=== PATIENT | female | born 1945 | race Caucasian/White ===

== ENCOUNTER → 2017-04-28 | Outpatient (CLI) | payer OTHER, BC ==
[~2017-04-28] VITALS: Ht 162.6 cm; Wt 72.6 kg
[~2017-04-28] MED LIST: ADVAIR HFA115 MCG/21 INH; ALENDRONATE SOD70 MG PO; ASPIR-LOW81 MG PO; B COMPLEX WITH1 EAC1 PO; BREO ELLIPTA 11 EACH INH; BUPROPION HCL150 M1 PO; CALCIUM 600 +1 EAC1 PO; DUONEB 2.5-0.5 M3 ML INH; FLEXERIL PO; HYDROCODON-ACE1 EAC8 PO; HYDROCODONE-AP1 EA11 PO; LIPITOR 20 MG T20 M1 PO; LISINOPRIL20 MG PO; MAGOX 400400 MG PO; MUCINEX TA600 MG/TA2 PO; MULTIVITAMINS1 EAC7 PO; PREDNISONE 10 M10 MG PO; PROAIR HFA8.5 GM INH; SINGULAIR 10 MG10 M1 PO; SORINE 80 MG TA80 M1 PO; SPIRIVA18 MCG INH; SV FLAXSEED OI1 EACH PO; TESSALON PERLE100 M1 PO; TRAZODONE HCL50 MG PO; VALIUM5 MG PO; VENTOLIN HFA 1818 GM INH; VITAMIN B COMP1 EACH PO; VITAMIN C + RO500 MG PO; VITAMIN D3400 UNI2 PO; XANAX 0.5 MG0.5 MG PO; ZADITOR5 M1 OPHTHALMIC
--- NOTE | ~2017-04-28 | P ---
[facility] [place] [address] PROCEDURE REPORT Name: NELLY NGUYEN Room #: REG [facility]#: [id number] Admission: 04/28/17 Attend Phys: Servando Asencio Discharge: Date of : 43 Report #: [id number] THIS REPORT FOR: //name// CC: Servando Morris DATE OF SERVICE: 04/28/2017 PROCEDURE PERFORMED: Upper endoscopy with esophageal dilation. HISTORY OF PRESENT ILLNESS: The patient is a 71-year-old female who reports intermittent dysphagia, sometimes to liquids, intermittent heartburn symptoms at times. Plan is for upper endoscopy. DESCRIPTION OF PROCEDURE: The risks and benefits of the procedure were explained to the patient, those risks including but not limited to bleeding, perforation and the risk of sedation. She understood these risks and gave informed consent. Sedation was given using propofol per anesthesia. Next, using a standard [employer] upper endoscope, the scope was placed in the patient's mouth and advanced under direct vision through the esophagus, stomach and into the second portion of the duodenum. The larynx was normal in appearance. There was a mild narrowing in the very proximal esophagus. The scope passed through this area without much resistance. The mid and distal esophagus was normal. The GE junction was normal. No evidence of stricture or esophagitis. Overall, the gastric mucosa was normal. The pylorus was normal and patent. The duodenal bulb, first and second portion were all normal. The scope was then brought back up into the patient's stomach and a Savary guidewire was inserted through the scope, leaving the guidewire in place as the scope was then withdrawn. Next, a 48-Guatemalan Savary dilation of the esophagus was performed without difficulty. The wire and dilator were removed. The scope was reintroduced into the patient's stomach. There was no evidence of mucosal tear after dilation. The scope was then withdrawn and the procedure terminated. The patient tolerated the procedure well. IMPRESSION: 1. Mild narrowing in the proximal esophagus, status post dilation. 2. Otherwise, normal upper endoscopy. RECOMMENDATIONS: 1. Observe the patient post-dilation. 2. Plan is for colonoscopy next today. [facility] [address] [place] [address] PROCEDURE REPORT Name: NELLY NGUYEN Room #: REG [facility] Geronimo.#: [id number] Admission: 04/28/17 Attend Phys: Servando Asencio Discharge: Date of : 43 Report #: [id number] Thank you for allowing me to participate in her care. <ELECTRONICALLY SIGNED> By: Seravndo Leroy MD 04/30/17 1622 0839 0951 Servando Leroy MD /nt
--- NOTE | ~2017-04-28 | P ---
[facility] [place] [address] PROCEDURE REPORT Name: NELLY NGUYEN Room #: REG [facility]#: [id number] Admission: 04/28/17 Attend Phys: Servando sAencio Discharge: Date of : 43 Report #: [id number] THIS REPORT FOR: //name// CC: Servando Morris DO DATE OF SERVICE: 04/28/2017 PROCEDURE PERFORMED: Colonoscopy. HISTORY OF PRESENT ILLNESS: The patient is a 71-year-old female with a history of extensive diverticulosis and tortuous sigmoid colon. Last colonoscopy was by my partner, Dr. Laura Villarreal in 2013. She had a very difficult time advancing the scope through the sigmoid colon, took over an hour. Multiple polyps were also removed at that time. She is here for routine followup. She does complain of intermittent left lower quadrant abdominal pain. It is unclear if she has ever had diverticulitis. She was actually sent to Dr. Cecilia Lanier for the possibility of a sigmoid colon resection last year and recommended a barium enema imaging. I am not sure if this was ever performed. She never did have surgery. She does complain of constipation as well. Plan is for repeat colonoscopy. DESCRIPTION OF PROCEDURE: The risks and benefits of the procedure were explained to the patient, those risks including but not limited to bleeding, perforation, the risk of sedation. She understood these risks and gave informed consent. Sedation was given using propofol per Anesthesia. Next, a digital rectal exam was initially performed, which was normal. Next, using a pediatric Fujinon colonoscope, the scope was placed in the patient's anus and advanced under direct vision into the sigmoid colon. I spent approximately 30 minutes, trying to navigate through the sigmoid colon unsuccessfully due to very tortuous sigmoid colon with multiple diverticula. At this point, I removed the pediatric scope and replaced it with Fujinon upper endoscope. I was able to advance the scope through the sigmoid colon, still with some difficulty, however. I was able to advance the scope to the ileocecal valve, half of the cecum was able to be visualized. I was unable to pass the scope deep into the cecum, however. There were no abnormalities in the visualized portion of the cecum. The overall prep was good. Ileocecal valve was normal. Ascending colon was normal. In the transverse colon, there was a 6 mm sessile polyp. This was removed by snare cautery, otherwise normal. Descending colon showed a few diverticula. Again in the sigmoid colon, very tortuous, multiple large diverticula noted throughout. There was some narrowing in areas as well. No active diverticulitis noted. A 4 mm sessile polyp was also noted. This was removed with cold forceps. The rectal mucosa was normal on retroflexion, no abnormalities were noted. The scope was then withdrawn and the procedure terminated. The patient tolerated the procedure well. [address] [address] PROCEDURE REPORT Name: WENDYNELLY M Room #: REG IS[facility]ELL Hua#: [id number] Admission: 04/28/17 Attend Phys: Servando Asencio Discharge: Date of : 43 Report #: [id number] IMPRESSION: 1. Very tortuous sigmoid colon with multiple diverticula, areas of narrowing. Unable to pass even a pediatric scope through this area. No active diverticulitis noted. Suspect the patient has had scarring from previous episodes of diverticulitis. 2. Sigmoid colon polyp. 3. Transverse colon polyp. 4. Otherwise, normal colonoscopy. RECOMMENDATIONS: 1. Await biopsy results. 2. I would have the patient reconsider surgical resection of sigmoid colon due to ongoing pain in this area with what appears to be strictures and very tortuous sigmoid colon, may consider a barium enema as Dr. Cecilia Lanier recommended last year, especially if this was not done. We will discuss this with the patient. Thank you for allowing me to participate in her care. <ELECTRONICALLY SIGNED> By: Servando Leroy MD 04/30/17 1622 0945 1015 Servando Leroy MD /nt
--- NOTE | ~2017-04-28 | S ---
[facility] [place] [address] SURGICAL PATH RPT PROCEDURE Name: NELLY NGUYEN Room #: REG [facility]#: [id number] Admission: 04/28/17 Date of : 43 Discharge: Report #: [id number] Path Case #: [id number] PATHOLOGY REPORT COLLECTION DATE: 04/28/2017 RECEIVED DATE: 04/28/2017 SUBMITTING PHYS: Dr. Servando Leroy OTHER PHYS: Dr. Yassine Morris SPECIMEN(S) RECEIVED: A.Transverse colon polyp B.Sigmoid colon polyp biopsy * * * * * * * * * * * * FINAL DIAGNOSIS: A. Polyp, transverse colon polypectomy, endoscopic biopsy: - Tubular adenoma. - Cauterized margin showing unremarkable mucosa. - Negative for high-grade dysplasia. B. Polyp, sigmoid colon polyp, endoscopic biopsy: - Tubular adenoma. - Negative for high-grade dysplasia. (IUV:judi; 04/29/2017) PATHOLOGIST: Ashley Sebastian M.D. REPORT ELECTRONICALLY SIGNED BY: Ashley Sebastian M.D. DATE/TIME: 04/29/2017 14:10 * * * * * * * * * * * * GROSS PATHOLOGY: A. Received in formalin labeled Nelly Nguyen, transverse colon polypectomy" and consists of a 0.6 x 0.4 x 0.2 cm leon-pink tissue fragment which is entirely submitted as A1. B. Received in formalin labeled "Nelly Nguyen, sigmoid colon polyp BX" and consists of 2 leon tissue fragments each averaging 0.3 cm. The specimen is entirely submitted as B1. (KELVIN; 04/28/2017) CLINICAL HISTORY: Dysphagia, abdominal pain, history colon polyps, diverticulosis INITIAL CPT CODE(S): A; 82001 B; 58775 Professional services performed by [facility] at [address] [address] SURGICAL PATH RPT PROCEDURE Name: NELLY NGUYEN Room #: REG CLI [facility].#: [id number] Admission: 04/28/17 Date of : 43 Discharge: Report #: [id number] Path Case #: [id number] [address], [place] [address] Technical services performed by [facility] at [address] [place] [address], [facility] [address] [address]. [place] [address] PHONE: [phone] DIRECTOR: Barrera Wei M.D. * * * END OF REPORT * * *
== END | disposition home or self-care (01) ==
LOC: GI 06:30
DX: D12.3 Benign neoplasm of transverse colon (principal); D12.5 Benign neoplasm of sigmoid colon; K57.30 Diverticulosis of large intestine without perforation or abscess without bleeding; R13.19 Other dysphagia; I10 Essential (primary) hypertension; J43.8 Other emphysema; E78.00 Pure hypercholesterolemia, unspecified; M81.0 Age-related osteoporosis without current pathological fracture; F17.210 Nicotine dependence, cigarettes, uncomplicated; F32.89 Other specified depressive episodes; Z98.890 Other specified postprocedural states; Z86.73 Personal history of transient ischemic attack (TIA), and cerebral infarction without residual deficits; Z85.828 Personal history of other malignant neoplasm of skin; Z87.19 Personal history of other diseases of the digestive system; Z90.49 Acquired absence of other specified parts of digestive tract; Z98.41 Cataract extraction status, right eye; Z98.42 Cataract extraction status, left eye; Z88.8 Allergy status to other drugs, medicaments and biological substances; Z79.82 Long term (current) use of aspirin; Z79.899 Other long term (current) drug therapy
CPT/HCPCS: 62110

== ENCOUNTER → 2018-04-12 | Outpatient (CLI) | payer OTHER, BC | LOC: RAD 14:20 | DX: R05 Cough (principal) ==

== ENCOUNTER → 2019-04-12 | Outpatient (CLI) | payer OTHER, BC ==
[~2019-04-12] MED LIST changes: +BREO ELLIPTA 21 EACH INH; +INDAPAMIDE1.25 MG PO; +PRADAXA150 MG PO; +VITAMIN D35000 UNI2 PO; +XOLAIR150 MG/1 M SUBQ
== END ==
LOC: SJCVC 13:44
DX: I21.19 ST elevation (STEMI) myocardial infarction involving other coronary artery of inferior wall (principal); I47.1 Supraventricular tachycardia; I10 Essential (primary) hypertension; J44.9 Chronic obstructive pulmonary disease, unspecified; E78.5 Hyperlipidemia, unspecified; I48.91 Unspecified atrial fibrillation; M81.0 Age-related osteoporosis without current pathological fracture; F17.200 Nicotine dependence, unspecified, uncomplicated; Z79.899 Other long term (current) drug therapy

== ENCOUNTER 2019-04-20 11:17 | Emergency (ER) | payer OTHER, BC ==
[~2019-04-20] VITALS: Ht 162.6 cm; Wt 72.6 kg
--- NOTE | ~2019-04-20 | EKG ---
[facility] [place] [address] ELECTROCARDIOGRAM REPORT Name: NELLY NGUYEN Room #: REG [facility]#: [id number] Admission: 04/20/19 Attend Phys: Discharge: Date of : 43 Report #: [id number] THIS REPORT FOR: cc: Yassine Morris Louis D. 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
--- NOTE | ~2019-04-20 | EKG ---
[facility] [place] [address] ELECTROCARDIOGRAM REPORT Name: NELLY NGUYEN [facility]#: [id number] Admission: Attend Phys: Discharge: Date of : 43 Report #: [id number] THIS REPORT FOR: cc: Gaetano Salter MD ~ THIS REPORT FOR: //name// [facility] ED Test Date: 2019-04-20 Test Time: 11:20:21 Pat Name: NELLY NGUYEN Department: Room: Gender: F Assistant Paralegal: HERBER : 1945 Requested By: Nayeli Valiente Order Number: [id number] MD: Measurements Intervals Branford Rate: 78 P: 72 IA: 149 QRS: 57 QRSD: 88 T: 70 QT: 397 QTc: 453 Interpretive Statements Sinus rhythm Consider right atrial enlargement Consider right ventricular hypertrophy ST elevation, consider inferior injury Compared to ECG 12/26/2000 03:44:31 ST (T wave) deviation now present Myocardial infarct finding now present Prolonged QT interval no longer present [email or web address] By: 1120 1120 Epiphany EpiphMD clifford /EPI
[~2019-04-20 11:17] MED LIST changes: -BREO ELLIPTA 21 EACH INH; -INDAPAMIDE1.25 MG PO; -PRADAXA150 MG PO; -VITAMIN D35000 UNI2 PO; -XOLAIR150 MG/1 M SUBQ
[2019-04-20] MEDS ORDERED: INDAPAMIDE1.25 MG PO (11:37)
[2019-04-20 11:50] LABS: HEMATOCRIT 43.6 % (37.0-47.0); HEMOGLOBIN 14.5 gm/dL (12.0-15.0); MCH 30.7 pg (26.0-34.0); MCHC 33.3 g/dL (28.0-37.0); MCV 92.4 fL (80.0-100.0); PLATELET COUNT 327 thou/uL (150-400); RBC 4.72 mil/uL (4.20-5.00); RDW 13.8 % (10.5-14.5); WBC 15.5 thou/uL (4.0-11.0)
[2019-04-20 12:00] LABS: ANION GAP 10 mmol/L (7-16); BUN 14 mg/dL (7-18); CALCIUM 10.1 mg/dL (8.5-10.1); CHLORIDE 95 mmol/L (98-107); CO2 28 mmol/L (21-32); CREATININE 0.9 mg/dL (0.6-1.0); GLUCOSE 97 mg/dL (74-106); POTASSIUM 3.4 mmol/L (3.5-5.1); SODIUM 133 mmol/L (136-145)
[2019-04-20 12:09] LABS: ALBUMIN 4.2 g/dL (3.4-5.0); SGOT 24 U/L (15-37); SGPT 41 U/L (30-65); TOTAL BILIRUBIN 0.5 mg/dL (<0.1-1.0); TROPONIN-I <0.06 ng/mL (<0.06)
[2019-04-20 12:13] LABS: ABSOLUTE NEUTROPHILS 8.7 thou/uL (1.4-8.2); PLATELET ESTIMATE NORMAL
[2019-04-20 15:00] VITALS: BP 108/49
== END 2019-04-20 15:01 | disposition home or self-care (01) ==
LOC: ER 11:17
PROVIDERS: Physician Assistant
DX: R00.2 Palpitations (principal); R07.89 Other chest pain; I10 Essential (primary) hypertension; E78.00 Pure hypercholesterolemia, unspecified; J44.9 Chronic obstructive pulmonary disease, unspecified; M81.0 Age-related osteoporosis without current pathological fracture; F32.9 Major depressive disorder, single episode, unspecified; F17.210 Nicotine dependence, cigarettes, uncomplicated; Z90.49 Acquired absence of other specified parts of digestive tract; Z90.710 Acquired absence of both cervix and uterus; Z88.1 Allergy status to other antibiotic agents; Z88.8 Allergy status to other drugs, medicaments and biological substances

== ENCOUNTER → 2019-05-11 | Outpatient (CLI) | payer OTHER, BC ==
[~2019-05-11] MED LIST changes: +BREO ELLIPTA 21 EACH INH; +INDAPAMIDE1.25 MG PO; +PRADAXA150 MG PO; +VITAMIN D35000 UNI2 PO; +XOLAIR150 MG/1 M SUBQ
== END ==
LOC: SJCVC 13:23
DX: I48.0 Paroxysmal atrial fibrillation (principal); I48.3 Typical atrial flutter; J44.9 Chronic obstructive pulmonary disease, unspecified; I10 Essential (primary) hypertension; E78.5 Hyperlipidemia, unspecified; M81.0 Age-related osteoporosis without current pathological fracture; F17.200 Nicotine dependence, unspecified, uncomplicated; Z79.899 Other long term (current) drug therapy; Z82.49 Family history of ischemic heart disease and other diseases of the circulatory system

== ENCOUNTER → 2019-05-15 | Outpatient (CLI) | payer OTHER, BC ==
[2019-05-15 12:45] LABS: HEMATOCRIT 39.3 % (37.0-47.0); HEMOGLOBIN 12.6 gm/dL (12.0-15.0); MCH 30.1 pg (26.0-34.0); MCHC 32.2 g/dL (28.0-37.0); MCV 93.6 fL (80.0-100.0); RBC 4.2 mil/uL (4.20-5.00); RDW 13.5 % (10.5-14.5)
[2019-05-15 13:17] LABS: ALBUMIN 3.8 g/dL (3.4-5.0); CALCIUM 9.7 mg/dL (8.5-10.1); CREATININE 0.8 mg/dL (0.6-1.0); POTASSIUM 4.1 mmol/L (3.5-5.1); TOTAL BILIRUBIN 0.5 mg/dL (<0.1-1.0); TOTAL PROTEIN 6.7 g/dL (6.4-8.2)
== END ==
LOC: CAT 11:58
PROVIDERS: Internal Medicine Cardiovascular Disease
DX: I48.91 Unspecified atrial fibrillation (principal); I25.10 Atherosclerotic heart disease of native coronary artery without angina pectoris; M47.814 Spondylosis without myelopathy or radiculopathy, thoracic region; E07.89 Other specified disorders of thyroid; Z90.49 Acquired absence of other specified parts of digestive tract

== ENCOUNTER → 2019-05-16 | Outpatient (CLI) | payer OTHER, BC ==
[~2019-05-16] VITALS: Ht 162.6 cm; Wt 74.8 kg
[2019-05-16 07:17] VITALS: BP 98/52
--- NOTE | 2019-05-16 08:53 | TEE ---
[facility] [place] [address] TRANSESOPHAGEAL ECHOCARDIOGRAM Name: NELLY NGUYEN Room #: REG ISABELL HubbardDavid#: [id number] Admission: 05/16/19 Attend Phys: Rich Hutchinson MD, Discharge: Date of : 43 Report #: [id number] THIS REPORT FOR: cc: Yassine Morris Louis D. DO Lundgren, Craig H. MD [facility] ~ APPROVED REPORT Study performed: 05/16/2019 07:52:41 EXAM: Comprehensive 2D, Doppler, and color-flow Echocardiogram Patient Location: Out-Patient Room #: 9 Status: routine BSA: 1.78 HR: 68 bpm BP: 98/59 mmHg Rhythm: NSR Other Information Study Quality: Excellent Indications Atrial Fibrillation Echo Enhancing Agent Indication: Rule out Shunt Agent(s) / Amount(s) Used: Agitated Saline 7 cc Procedure After obtaining informed consent, patient underwent transesophageal echo in the Nursing Department Chairperson Holding. Type of Sedation : Conscious Sedation Sedation was administered by Nurse. Sedation was achieved intravenously with: Versed (4 mg) Fentanyl (100 mcg) Transesophageal probe was inserted and advanced into esophagus without difficulty by Rich Hutchinson MD. Echo enhancement indication: R/O Septal defect. Echo enhancement agent administered: Agitated Saline The CARRIE was performed without complications. Throughout the procedure, the blood pressure, pulse oximetry, cardiac rhythm, and rate were monitored. [facility] [address] [place] [place] [address] TRANSESOPHAGEAL ECHOCARDIOGRAM Name: NELLY NGUYEN Room #: REG CL [facility]#: [id number] Admission: 05/16/19 Attend Phys: Rich Hutchinson, Discharge: Date of : 43 Report #: [id number] The patient tolerated the procedure without adverse effects. Recovery from conscious sedation was uneventful and vital signs were stable. Left Ventricle The left ventricle is normal size. There is normal LV segmental wall motion. There is normal left ventricular wall thickness. The left ventricular systolic function is normal. The left ventricular ejection fraction is within the normal range. LVEF is 55-60%. Right Ventricle The right ventricle is normal size. The right ventricular systolic function is normal. Atria The left atrium size is normal. No thrombus is visualized in the left atrium or appendage. No shunting by contrast bubble injection The right atrium size is normal. Aortic Valve The aortic valve is mildly sclerotic. Trace aortic regurgitation. There is no aortic valvular stenosis. Mitral Valve The mitral valve is normal in structure. There is no mitral valve regurgitation noted. No evidence of mitral valve stenosis. Tricuspid Valve The tricuspid valve is normal in structure. There is no tricuspid valve regurgitation noted. Pulmonic Valve The pulmonary valve is normal in structure. There is no pulmonic valvular regurgitation. Great Vessels The aortic root is normal in size. The ascending aorta is normal in size. Mild atherosclerosis of the aorta IVC is normal in size and collapses >50% with inspiration. Pericardium There is no pericardial effusion. <Conclusion> The left ventricular systolic function is normal. There is normal LV segmental wall motion. [facility] [address] [place] [address] TRANSESOPHAGEAL ECHOCARDIOGRAM Name: NELLY NGUYEN Room #: REG [facility]#: [id number] Admission: 05/16/19 Attend Phys: Rich Hutchinson, Discharge: Date of : 43 Report #: [id number] LVEF is 55-60%. Both atria sizes are normal. No thrombus is visualized in the left atrium or appendage. No shunting by contrast bubble injection The aortic valve is mildly sclerotic. Trace aortic regurgitation, no stenosis. The mitral valve is normal in structure. No mitral valve regurgitation. The ascending aorta is normal in size. Mild atherosclerosis of the aorta There is no pericardial effusion. <ELECTRONICALLY SIGNED> By: Rich Hutchinson MD, FACC 05/16/1953 1 1 Rich Hutchinson MD, FACC /INF
== END | disposition home or self-care (01) ==
LOC: CATH 06:30
DX: I48.91 Unspecified atrial fibrillation (principal); I35.1 Nonrheumatic aortic (valve) insufficiency; I70.0 Atherosclerosis of aorta; J44.9 Chronic obstructive pulmonary disease, unspecified; I10 Essential (primary) hypertension; E78.5 Hyperlipidemia, unspecified; F32.9 Major depressive disorder, single episode, unspecified; E78.00 Pure hypercholesterolemia, unspecified; K21.9 Gastro-esophageal reflux disease without esophagitis; M81.0 Age-related osteoporosis without current pathological fracture; F17.210 Nicotine dependence, cigarettes, uncomplicated; Z90.49 Acquired absence of other specified parts of digestive tract; Z98.890 Other specified postprocedural states; Z79.899 Other long term (current) drug therapy; Z82.49 Family history of ischemic heart disease and other diseases of the circulatory system; Z83.3 Family history of diabetes mellitus; Z85.828 Personal history of other malignant neoplasm of skin; Z98.41 Cataract extraction status, right eye; Z98.42 Cataract extraction status, left eye; Z96.651 Presence of right artificial knee joint; Z87.19 Personal history of other diseases of the digestive system; Z79.01 Long term (current) use of anticoagulants

== ENCOUNTER 2019-05-22 06:28 | Observation (INO) | payer OTHER, BC ==
[~2019-05-22] VITALS: Ht 162.6 cm; Wt 74.8 kg
[2019-05-22] VITALS (10 sets, daily range): BP systolic 103–11112; BP diastolic 5–78
--- NOTE | ~2019-05-22 | P ---
[facility] [place] [address] PROCEDURE REPORT Name: NELLY NGUYEN Room #: REG ISABELL Emil#: [id number] Admission: 05/22/19 Attend Phys: Armand Blount MD Discharge: Date of : 43 Report #: [id number] THIS REPORT FOR: cc: Yassine Morris,Yassine Villarreal,Armand Martinez MD ~ CC: Yassine Blount DATE OF SERVICE: 05/22/2019 ATRIAL FIBRILLATION AND ATRIAL FLUTTER ABLATION PREOPERATIVE DIAGNOSES: 1. Atrial fibrillation. 2. Atrial flutter. POSTOPERATIVE DIAGNOSES: 1. Atrial fibrillation. 2. Atrial flutter. PROCEDURES PERFORMED: 1. Atrial fibrillation, CPT code 05528. 2. 3D mapping EP, CPT code 37096. 3. Arterial line placement, CPT code 62400. 4. Intracardiac echo, CPT code 89454. 5. Second pathway ablation, CPT code 33826. ANESTHESIA: The patient underwent general anesthesia with no anesthesia related complications. DESCRIPTION OF PROCEDURE: The patient underwent informed consent. We discussed the details of the procedure including the risks, which include but not limited to bleeding, vascular damage, cardiac perforation, stroke, MN as well as damage to the levelock conduction system requiring permanent pacemaker. She understood these risks and is willing to proceed. The patient was brought to the EP laboratory in a fasting and sedated state, prepped and draped in a sterile fashion. At baseline, she was in sinus rhythm with a sinus cycle length of 1200 milliseconds, NH interval 160 milliseconds, QRS duration 80 milliseconds, QT interval 499 milliseconds. I injected lidocaine to the right groin region, obtained access to the right femoral vein x 3 and the right femoral artery x 1. In the right femoral vein, I placed an 8, 9 and 7-[place] short sheath and in the right femoral artery, I placed a 5-[place] short sheath for arterial blood monitoring. Sheaths were positioned using the modified Seldinger technique. Next, a decapolar catheter was placed easily into [address] [address] PROCEDURE REPORT Name: NELLY NGUYEN Room #: REG [facility].#: [id number] Admission: 05/22/19 Attend Phys: Armand Blount MD Discharge: Date of : 43 Report #: [id number] the coronary sinus and ICE catheter was placed to the right atrium. A detailed 3D geometry of the left atrium was created using [employer]. There was evidence of two right and two left pulmonary veins. The patient was then systemically heparinized and a transseptal was performed using an SL1 sheath and a Picacho needle. The transseptal was straightforward and advanced the SL1 into the left atrium with ease and then exchanged over for the cryo sheath. Via the cryo sheath, I placed a [employer] Rahman Lasso catheter and created a detailed 3D geometry of the left atrium. Next, I started by isolating the left superior pulmonary vein. The left superior pulmonary vein isolated within 32 seconds of the first freeze. The first freeze was of 155 seconds duration. I came off early due to cold attempts. A second freeze was performed of 160 seconds duration and I came off because of cold attempts. Next, I isolated the left inferior pulmonary vein. I performed a 4-minute freeze and this vein isolated within 60 seconds. The right superior pulmonary vein underwent a 240-second freeze followed by 120-second freeze, the vein isolated within 60 seconds of the first freeze. The right inferior pulmonary vein underwent a single freeze of 180 seconds duration. This vein isolated within 18 seconds. Next, I removed the cryoballoon from the left atrium and I created a repeat voltage map and there was now clear isolation of the 4 pulmonary veins with wide circumferential ablation of the left atrium. ATRIAL FLUTTER ABLATION: Based on her history of atrial flutter, an atrial flutter ablation was also performed. I performed ablation using an 8 mm ablation catheter at 70 de oliveira and 60 degrees via the cryo sheath. Pre-ablation, the transisthmus conduction time was 75 milliseconds. Post-ablation, it was 150 milliseconds with evidence of bidirectional block. Using an intracardiac ultrasound, there were no pericardial effusions noted. As such, the patient received systemic protamine and once the ACT was within acceptable range, catheters and sheaths were pulled and hemostasis was obtained. The patient awoke neurologically and hemodynamically intact. No complications and no significant bleeding. CONCLUSIONS: 1. Successful AFib ablation with isolation of pulmonary veins. 2. Successful atrial flutter ablation with evidence of bidirectional block. By: 1047 1250 Armand Blount MD /nt
--- NOTE | ~2019-05-22 | D ---
[facility] [place] [address] DISCHARGE SUMMARY Name: NELLY NGUYEN Room #: 208-P [facility] M..#: [id number] Admission: 05/22/19 Attend Phys: Armand Blount MD Discharge: Date of : 43 Report #: [id number] THIS REPORT FOR: cc: Yassine Morris Louis D. DO ~ THIS REPORT FOR: //name// CC: Yassine Blount DISCHARGE DIAGNOSES: 1. Atrial fibrillation. 2. Atrial flutter. PROCEDURES PERFORMED: AFib, atrial flutter ablation. HISTORY: The patient is a 73-year-old with recurrent atrial fibrillation, atrial flutter despite sotalol therapy. She was here for AFib ablation. She underwent successful AFib and atrial flutter ablation with no complications. HOSPITAL COURSE: The patient was monitored in the CCU overnight and did well. She denied any chest pain, shortness of breath, PND, orthopnea, presyncope, or syncope. PHYSICAL EXAMINATION: HEART: Regular rate and rhythm. LUNGS: Clear with some mild expiratory wheezing. ABDOMEN: Soft, nontender. EXTREMITIES: No clubbing, cyanosis or edema and her right groin was healing nicely. As such, she was deemed stable for discharge home and she will continue with her sotalol and Pradaxa therapy. She was given a script for some pain medications due to some neck pain related to lying flat. She will see me in 3 months. Discharge instructions were reviewed. By: 0843 0851 /nt
[2019-05-22 08:01] LABS: ABSOLUTE NEUTROPHILS 5.6 thou/uL (1.4-8.2); BASOPHILS 0.5 % (0.0-2.0); HEMATOCRIT 37.3 % (37.0-47.0); HEMOGLOBIN 12.6 gm/dL (12.0-15.0); MCHC 33.7 g/dL (28.0-37.0); MCV 92.1 fL (80.0-100.0); MONOCYTES 9.4 % (1.0-8.0); PLATELET COUNT 238 thou/uL (150-400); POLYS 61.1 % (36.0-66.0); RBC 4.05 mil/uL (4.20-5.00); RDW 13.2 % (10.5-14.5); WBC 9.1 thou/uL (4.0-11.0)
[2019-05-22 08:10] LABS: CALCIUM 9.6 mg/dL (8.5-10.1); CREATININE 0.8 mg/dL (0.6-1.0); POTASSIUM 3.5 mmol/L (3.5-5.1)
[2019-05-22 08:16] LABS: ALBUMIN 3.5 g/dL (3.4-5.0); TOTAL BILIRUBIN 0.3 mg/dL (<0.1-1.0); TOTAL PROTEIN 6.7 g/dL (6.4-8.2)
[2019-05-22 08:19] LABS: PROTIME 10.6 Seconds (9.3-11.4)
--- NOTE | 2019-05-22 12:37 | NUR ---
DR DOMINGUEZ IN TO SEE PT. PT STATES HER CHEST TIGHTNESS RADIATES UNDER HER LEFT BREAST DOWN HER LEFT ABDOMEN. EKG AND PAIN MEDS ORDERED BY DR DOMINGUEZ.
--- NOTE | 2019-05-22 17:00 | EKG ---
[facility] [place] [address] ELECTROCARDIOGRAM REPORT Name: NELLY NGUYEN Room #: 208-P [facility] M.R.#: [id number] Admission: 05/22/19 Attend Phys: Armand Blount MD Discharge: Date of : 43 Report #: [id number] THIS REPORT FOR: cc: Yassine Morris Louis D. DO Lundgren, Craig H. MD [facility] THIS REPORT FOR: //name// [facility] Test Date: 2019-05-22 Test Time: 12:50:32 Pat Name: NELLY NGUYEN Department: Room: 208 Gender: F Office Machine Installer: Amy PLAZA : 1945 Requested By: Armand Blount Order Number: [id number] MD: Rich Hutchinson Measurements Intervals Telferner Rate: 69 P: 78 OH: 199 QRS: 10 QRSD: 95 T: 50 QT: 454 QTc: 487 Interpretive Statements Sinus rhythm RSR' in V1 or V2, right VCD Borderline prolonged QT interval Compared to ECG 04/20/2019 13:00:21 No significant change was found Electronically Signed On 05-22-2019 16:59:26 BOILER SETTER by Rich Hutchinson [email or web address] <ELECTRONICALLY SIGNED> By: Rich Hutchinson MD, FACC 05/22/19 1659 1250 1250 Rich Hutchinson MD, FAC /EPI
--- NOTE | 2019-05-22 20:07 | NUR ---
ASSUMED CARE AT 1300, SHIFT ASSESSMENT DONE, MEDS GIVEN, ADMISISON DONE, VSS. ON PSOT OP VITAL SIGNS, BED REST UNTIL 1700. GARCIA WAS TAKEN OUT AT 1700, JUST HAD 150 ML OUT. NSR ON MONITOR, 2L FOR COMFORT CARE. WILL CONTINUE TO ASSESS AND ASSIST WITH ADLs NEEDED. RIGHT GROIN SITE IS CLEAN, DRY, INTACT, SMALL AMOUNT OF DRIED BLOOD NOTED. NIGHT NURSE SAW THE SITE. WILL CONTINUE TO ASSESS AND ASSIST WITH ADLs NEEDED.
[2019-05-23 00:37] VITALS: BP 103/34
--- NOTE | 2019-05-23 05:04 | NUR ---
ASSUMED PT CARE AT 0000. PREPORT RECEIVED FROM ALEX DIAZ. NO SIGN OF DISTRESS NOTED IN PT. PT IS SLEEPING UPON ARRIVAL TO ROOM. SPOUSE AT BEDSIDE. REQUESTED FOR PAIN MED A RESULT OF BACK PAIN. BREATHING TREATMENT ORDER A RESULT OF SHROTNESS OF BREATH REPORTED BY PT. BREATHING TREATMENT ADMINISTERED TO PT. DENIES ANY FURTHER NEEDS AT THIS TIME.
[2019-05-23 05:24] VITALS: BP 131/71
[2019-05-23 08:20] VITALS: BP 108/51
--- NOTE | 2019-05-23 08:44 | NUR ---
ASSUMED CARE OF PT AT SHIFT CHANGE, SBA FOR AMBULATION, USES CANE AT HOME INFREQUENTLY. NO SKIN ISSUES OTHER THAN ALL OVER SCATTERED BRUISING. C/O PAIN HEADACHE AND CHRONIC BACK/NECK PAIN. DOES HAVE SKIN SPOTS FROM PROCEDURE, HEALING. PHYSICIAN DELIVERED PAIN RX. RN GAVE INSTRUCTION ABOUT D/C PROCEDURE. SCANNER SCANNED ALL MEDS SAVE FOR PAIN. CALLED PHARMACY AND THEY SAID THEY WOULD COME ORIENTAL RUG REPAIRER, BAR CODE INCOMPLETE, AND WILL TUBE ANOTHER BAR CODE FOR PAIN MED. SPOUSE AT BEDSIDE. SEE SEPARATE INTERVENTIONS FOR ASSESSMENTS. ENCOURAGED BOTH TO USE CALL LIGHT FOR ANY NEEDS
[2019-05-23 09:00] VITALS: BP 131/71
[2019-05-23 09:03] VITALS: BP 131/71
== END 2019-05-23 10:50 | disposition home or self-care (01) ==
LOC: CATH → 2N 14:07 → CATH 15:00 → ENTRNSPT 05-23 10:32 → 2N 05-23 10:50 → CMPTRNSPT 05-23 10:55
PROVIDERS: ADMIT Internal Medicine Cardiovascular Disease
DX: I48.91 Unspecified atrial fibrillation (principal); I48.92 Unspecified atrial flutter
CPT/HCPCS: 62110; 62900; 70005

== ENCOUNTER → 2019-08-16 | Outpatient (CLI) | payer OTHER, BC | LOC: MRI 09:41 | DX: M50.11 Cervical disc disorder with radiculopathy, high cervical region (principal); M47.812 Spondylosis without myelopathy or radiculopathy, cervical region; M48.02 Spinal stenosis, cervical region; M25.412 Effusion, left shoulder; M19.012 Primary osteoarthritis, left shoulder ==

== ENCOUNTER → 2019-08-22 | Outpatient (CLI) | payer OTHER, BC | LOC: SJCVC 12:26 | PROVIDERS: ATTEND Internal Medicine Cardiovascular Disease | DX: I48.0 Paroxysmal atrial fibrillation (principal); I48.3 Typical atrial flutter; J44.9 Chronic obstructive pulmonary disease, unspecified; I10 Essential (primary) hypertension; E78.5 Hyperlipidemia, unspecified; M81.0 Age-related osteoporosis without current pathological fracture; Z79.899 Other long term (current) drug therapy; Z82.49 Family history of ischemic heart disease and other diseases of the circulatory system; Z87.891 Personal history of nicotine dependence ==

== ENCOUNTER → 2019-09-27 | Outpatient (CLI) | payer OTHER, BC | LOC: RAD 09:18 | PROVIDERS: ATTEND Internal Medicine | DX: J98.11 Atelectasis (principal); J45.51 Severe persistent asthma with (acute) exacerbation; R05 Cough; R06.00 Dyspnea, unspecified ==

== ENCOUNTER → 2019-11-23 | Outpatient (CLI) | payer OTHER, BC | LOC: CAT 13:08 | PROVIDERS: ATTEND Internal Medicine | DX: J84.10 Pulmonary fibrosis, unspecified (principal); R91.1 Solitary pulmonary nodule; M79.89 Other specified soft tissue disorders; M25.78 Osteophyte, vertebrae; I70.0 Atherosclerosis of aorta; Z90.49 Acquired absence of other specified parts of digestive tract ==

== ENCOUNTER → 2019-12-20 | Outpatient (CLI) | payer OTHER, BC | LOC: SJCVC 13:12 | PROVIDERS: ATTEND Internal Medicine Cardiovascular Disease | DX: I48.91 Unspecified atrial fibrillation (principal); R94.31 Abnormal electrocardiogram [ECG] [EKG]; I10 Essential (primary) hypertension; E78.5 Hyperlipidemia, unspecified; F17.200 Nicotine dependence, unspecified, uncomplicated; Z79.899 Other long term (current) drug therapy ==

== ENCOUNTER → 2020-05-22 | Outpatient (CLI) | payer OTHER, BC | LOC: CAT 11:10 | PROVIDERS: ATTEND Internal Medicine | DX: J84.10 Pulmonary fibrosis, unspecified (principal); R91.8 Other nonspecific abnormal finding of lung field; I25.10 Atherosclerotic heart disease of native coronary artery without angina pectoris; J98.4 Other disorders of lung ==